=== PATIENT | male | born 1940 | race Caucasian/White ===

== ENCOUNTER 2019-03-11 19:42 | Emergency (ER) | payer OTHER ==
[~2019-03-11] VITALS: Ht 182.9 cm; Wt 99.8 kg
[~2019-03-11 19:42] MED LIST: CIPR500 PO; Percocet 5-3251 EACH PO; TAMS.4ER PO; Zofran Odt4 MG SL
== END 2019-03-11 20:27 | disposition home or self-care (01) ==
LOC: ER 19:42
DX: R42 Dizziness and giddiness (principal); V49.9XXA Car occupant (driver) (passenger) injured in unspecified traffic accident, initial encounter
CPT/HCPCS: 99283

== ENCOUNTER → 2022-06-20 | Outpatient (CLI) | payer OTHER | LOC: LAB 15:45 → LAB SHORT 15:45 | DX: L08.9 Local infection of the skin and subcutaneous tissue, unspecified (principal) | CPT/HCPCS: 87070; 87077; 87147; 87186; 87205 ==

== ENCOUNTER 2023-09-18 07:49 | Inpatient (IN) | payer OTHER ==
[~2023-09-18] VITALS: Ht 182.9 cm; Wt 90.6 kg
[2023-09-18 08:27] LABS: BASOPHILS ABSOLUTE AUTO 0.05 K/mm3 (0.00-0.23); BASOPHILS PERCENT AUTO 1 % (0-2); EOSINOPHILS ABSOLUTE AUTO 0.01 K/mm3 (0.00-0.68); EOSINOPHILS PERCENT AUTO 0 % (0-6); Hematocrit 46.2 % (37.0-53.0); Hemoglobin 16.4 g/dL (13.5-17.5); IMMATURE GRAN ABSOLUTE AUTO 0.03 K/mm3 (0.00-0.10); IMMATURE GRAN PERCENT AUTO 0 % (0-1); LYMPHOCYTES ABSOLUTE AUTO 0.74 K/mm3 (0.84-5.20); LYMPHOCYTES PERCENT AUTO 7 % (21-46); MONOCYTES ABSOLUTE AUTO 0.92 K/mm3 (0.16-1.47); MONOCYTES PERCENT AUTO 9 % (4-13); Mean Corpuscular HGB 32.6 pg (26.0-34.0); Mean Corpuscular HGB Conc 35.5 g/dL (31.5-36.5); Mean Corpuscular Volume 92 fL (80-100); Mean Platelet Volume 10.2 fL (9.1-12.4); NEUTROPHILS PERCENT AUTO 83 % (41-73); Platelet Count 196 K/mm3 (150-400); RDW Coefficient Variation 12.4 % (11.7-14.2); RDW Standard Deviation 41.3 fL (35.1-46.3); Red Blood Cell Count 5.03 M/mm3 (4.30-5.90); White Blood Cell Count 10.25 K/mm3 (4.00-11.30)
[2023-09-18 08:36] LABS: Albumin, Blood 3.4 g/dL (3.4-5.0); Albumin/Globulin Ratio 0.7 (0.8-1.8); Bilirubin, Total 1.3 mg/dL (0.1-1.0); Bun/Creatinine Ratio 15.1 (12.0-20.0); Creatinine, Blood 1.06 mg/dL (0.60-1.20); Globulin, Blood 4.7 g/dL (2.2-4.0); Magnesium, Blood 2.1 mg/dL (1.6-2.4); Potassium, Blood 4.1 mmol/L (3.5-5.5); Total Protein, Blood 8.1 g/dL (6.4-8.2)
[2023-09-18 09:44] LABS: Influenza A, PCR NEGATIVE (NEGATIVE); Influenza B, PCR NEGATIVE (NEGATIVE); Resp Syncytial Virus, PCR NEGATIVE (NEGATIVE)
[2023-09-18 09:55] LABS: SARS-Cov-2 (COVID-19) PCR, MMC POSITIVE (NEGATIVE)
[2023-09-18 11:29] LABS: Source, Urine Clean Catch
[2023-09-18 11:37] LABS: Appearance, Urine Clear (Clear); Bilirubin, Urine Neg (Neg); Blood, Urine 3+ (Neg); Color, Urine Yellow (P-Yellow); Glucose Qualitative, Urine Neg (Neg); Ketones, Urine 2+ (Neg); Leukocyte Esterase, Urine 2+ (Neg); Nitrite, Urine Neg (Neg); Protein, Urine 2+ (Neg); Urobilinogen, Urine NORM (Normal)
[2023-09-18 11:48] LABS: Bacteria Many /hpf; Squamous Epithelial Cells Few /hpf (Few)
[2023-09-18 14:04] VITALS: BP 120/83
[2023-09-18 16:17] LABS: Anti-Xa UFH, PHA Monitoring <0.10 IU/mL; International Normalized Ratio 1.09; Prothrombin Time Results 11.4 Sec (9.7-11.5)
[2023-09-18 16:54] VITALS: BP 132/78
--- NOTE | 2023-09-18 18:50 | NUR ---
Shift Summary Report received form ER; pt to room via ivette, 1 person assist transfer to bed; pt unsteady on feet and leans backward while trying to stand. Pt oriented to call light and room; educated on fall risk and needing assistance to get up. Bed in low, bed alarm on, call light within reach. Pt alert, oriented x3; forgetful and impulsive at times. Tele afib 100-110's, bp stable; on dilt gtt at 5mg/hr. Spo2 >90% on ra, breathing even and unlabored. Abd soft, nontender +bt. Edema noted to lle. Venous duplex +; notified Dr Gu; new order for IR consult called to office. Heparin gtt started. No other acute changes noted. Will continue to monitor.
--- NOTE | 2023-09-18 18:56 | NUR ---
Patient and daughter have requested no COVID vaccine or remdesivir be administered to patient.
[2023-09-18 20:01] VITALS: BP 115/78
[2023-09-18 23:20] VITALS: BP 134/85
[2023-09-19] VITALS (7 sets, daily range): BP systolic 115–148; BP diastolic 72–102
[2023-09-19 04:42] LABS: BASOPHILS ABSOLUTE AUTO 0.06 K/mm3 (0.00-0.23); BASOPHILS PERCENT AUTO 1 % (0-2); EOSINOPHILS ABSOLUTE AUTO 0.02 K/mm3 (0.00-0.68); EOSINOPHILS PERCENT AUTO 0 % (0-6); Hematocrit 44.2 % (37.0-53.0); IMMATURE GRAN ABSOLUTE AUTO 0.03 K/mm3 (0.00-0.10); IMMATURE GRAN PERCENT AUTO 0 % (0-1); LYMPHOCYTES ABSOLUTE AUTO 1.28 K/mm3 (0.84-5.20); LYMPHOCYTES PERCENT AUTO 16 % (21-46); MONOCYTES ABSOLUTE AUTO 1.03 K/mm3 (0.16-1.47); MONOCYTES PERCENT AUTO 13 % (4-13); Mean Corpuscular HGB 32.1 pg (26.0-34.0); Mean Corpuscular HGB Conc 33.9 g/dL (31.5-36.5); Mean Corpuscular Volume 94 fL (80-100); Mean Platelet Volume 9.9 fL (9.1-12.4); NEUTROPHILS ABSOLUTE AUTO 5.65 K/mm3 (1.96-9.15); NEUTROPHILS PERCENT AUTO 70 % (41-73); Platelet Count 177 K/mm3 (150-400); RDW Coefficient Variation 12.4 % (11.7-14.2); RDW Standard Deviation 42.7 fL (35.1-46.3); Red Blood Cell Count 4.68 M/mm3 (4.30-5.90); White Blood Cell Count 8.07 K/mm3 (4.00-11.30)
[2023-09-19 05:09] LABS: Bun/Creatinine Ratio 16.2 (12.0-20.0); Calcium, Blood 8.3 mg/dL (8.5-10.1); Creatinine, Blood 1.05 mg/dL (0.60-1.20); Magnesium, Blood 1.9 mg/dL (1.6-2.4); Potassium, Blood 3.8 mmol/L (3.5-5.5)
--- NOTE | 2023-09-19 06:00 | NUR ---
SHIFT SUMMARY PATIENT ALERT, ORIENTED x2-3. PATIENT DEFENSIVE WHEN SPEAKING WITH STAFF, STATING "I DON'T EVEN NEED TO BE HERE", "I NEED TO GET OUT OF HERE". PATIENT REORIENTED TO THE REASON HE IS IN THE HOSPITAL. BP STABLE. TELE READING AFIB/AFLUTTER 100s. CARDIZEM GTT ON STANDBY SINCE AROUND 0430. PATIENT PLACED ON 2L NC DURING THE NIGHT D/T DESATTING TO MID 80s WHEN ASLEEP, SPO2 >90% OTHERWISE. PATIENT ATTEMPTING TO USE URINAL BUT IS ALSO HAVING INCONTINENT VOIDS. ATTENDS IN PLACE. TURNING SELF IN BED. NO OTHER CHANGES DURING THE NIGHT, WILL REPORT TO DAY SHIFT RN.
--- NOTE | 2023-09-19 17:50 | NUR ---
Shift Summary Pt alert, oriented 2-3; forgetful at times. Pt up with 1 person assist and walker/gb. Pt denies pain, chest pain/pressure, sob, nausea, dizziness and numb/tingling. Tele afib 100's, bp stable. Spo2 >90% on ra, breathing even and unlabored. Abd soft, nontender +bt noted. Edema noted to lle. Pt to labor standards director this evening, left popliteal access with flowstasis. Otehr vss. No other acute changes noted. Will continue to monitor.
[2023-09-20 04:14] VITALS: BP 125/79
--- NOTE | 2023-09-20 04:25 | NUR ---
SHIFT SUMMARY. PT HAS BEEN DOING WELL THROUGHOUT THIS SHIFT, NO ACUTE CHANGES. PT HAS BEEN AOX2-3 THROUGHOUT SHIFT, REQUIRING SOME REORIENTATION PERIODICALLY. SOMEWHAT IMPULSIVE BUT IS EASILY REDIRECTABLE. NO PAIN REPORTED THIS SHIFT. DOES NOT USE CALL LIGHT CONSISTENTLY BUT IS ABLE TO MAKE NEEDS KNOWN WHEN PROMPTED. HAS BEEN SATURATING WELL ON ROOM AIR THROUGHOUT SHIFT THUS FAR. LEFT POPLITEAL SITE APPEARS UNCHANGED FROM SHIFT CHANGE. HAS BEEN ABLE TO SLEEP THROUGHOUT MOST OF SHIFT THUS FAR. HEPARIN DRIP RUNNING THROUGHOUT SHIFT, TITRATED DOWN ONCE PER ORDER OF PHARMACY. ALL I+Os CHARTED APPROPRIATELY. VITALS HAVE BEEN STABLE THROUGHOUT SHIFT. BED ALARM ACTIVE THROUGHOUT SHIFT. COVID PRECAUTIONS REMAIN IN PLACE. BED LOCKED IN LOWEST POSITION. CALL LIGHT LEFT WITHIN REACH. CONTINUING TO MONITOR.
[2023-09-20 06:14] LABS: BASOPHILS ABSOLUTE AUTO 0.06 K/mm3 (0.00-0.23); BASOPHILS PERCENT AUTO 1 % (0-2); EOSINOPHILS ABSOLUTE AUTO 0.07 K/mm3 (0.00-0.68); EOSINOPHILS PERCENT AUTO 1 % (0-6); Hematocrit 43.1 % (37.0-53.0); Hemoglobin 15.2 g/dL (13.5-17.5); IMMATURE GRAN ABSOLUTE AUTO 0.02 K/mm3 (0.00-0.10); IMMATURE GRAN PERCENT AUTO 0 % (0-1); LYMPHOCYTES ABSOLUTE AUTO 1.44 K/mm3 (0.84-5.20); LYMPHOCYTES PERCENT AUTO 21 % (21-46); MONOCYTES ABSOLUTE AUTO 0.79 K/mm3 (0.16-1.47); MONOCYTES PERCENT AUTO 11 % (4-13); Mean Corpuscular HGB 32.7 pg (26.0-34.0); Mean Corpuscular HGB Conc 35.3 g/dL (31.5-36.5); Mean Corpuscular Volume 93 fL (80-100); Mean Platelet Volume 10.3 fL (9.1-12.4); NEUTROPHILS ABSOLUTE AUTO 4.63 K/mm3 (1.96-9.15); NEUTROPHILS PERCENT AUTO 66 % (41-73); Platelet Count 173 K/mm3 (150-400); RDW Coefficient Variation 12.5 % (11.7-14.2); RDW Standard Deviation 42.6 fL (35.1-46.3); Red Blood Cell Count 4.65 M/mm3 (4.30-5.90); White Blood Cell Count 7.01 K/mm3 (4.00-11.30)
[2023-09-20 06:32] LABS: Bun/Creatinine Ratio 17.1 (12.0-20.0); Calcium, Blood 8.5 mg/dL (8.5-10.1); Creatinine, Blood 1.05 mg/dL (0.60-1.20); Potassium, Blood 4.2 mmol/L (3.5-5.5)
[2023-09-20 08:38] VITALS: BP 143/82
[2023-09-20 11:39] VITALS: BP 108/71
[2023-09-20 16:18] VITALS: BP 114/78
--- NOTE | 2023-09-20 18:33 | NUR ---
Shift Summary Pt alert, oriented x2-3, pt forgetful at times. Pt up with 1 person assist to bathroom. Pt denies pain, chest pain/pressure, sob, nausea, dizziness and numb/tingling. Tele afib 80-90's and bp stable. Spo2 >90% on ra while awake, 2l o2 via nc while sleeping. Abd, soft nontender, +bt. Pt transitioned from heparin to xarelto this evening. LLE site c/d/i, flow statsis removed by feed mill lab technician rn this am. Other vss. No other acute changes noted. Will continue to monitor.
[2023-09-20 19:31] VITALS: BP 131/82
[2023-09-21 04:26] VITALS: BP 143/86
[2023-09-21 05:28] LABS: BASOPHILS ABSOLUTE AUTO 0.04 K/mm3 (0.00-0.23); BASOPHILS PERCENT AUTO 1 % (0-2); EOSINOPHILS ABSOLUTE AUTO 0.15 K/mm3 (0.00-0.68); EOSINOPHILS PERCENT AUTO 3 % (0-6); Hematocrit 45.3 % (37.0-53.0); Hemoglobin 15.7 g/dL (13.5-17.5); IMMATURE GRAN ABSOLUTE AUTO 0.02 K/mm3 (0.00-0.10); IMMATURE GRAN PERCENT AUTO 0 % (0-1); LYMPHOCYTES ABSOLUTE AUTO 1.62 K/mm3 (0.84-5.20); LYMPHOCYTES PERCENT AUTO 27 % (21-46); MONOCYTES ABSOLUTE AUTO 0.58 K/mm3 (0.16-1.47); MONOCYTES PERCENT AUTO 10 % (4-13); Mean Corpuscular HGB Conc 34.7 g/dL (31.5-36.5); Mean Corpuscular Volume 92 fL (80-100); Mean Platelet Volume 10.6 fL (9.1-12.4); NEUTROPHILS ABSOLUTE AUTO 3.65 K/mm3 (1.96-9.15); NEUTROPHILS PERCENT AUTO 60 % (41-73); Platelet Count 188 K/mm3 (150-400); RDW Coefficient Variation 12.4 % (11.7-14.2); RDW Standard Deviation 42.5 fL (35.1-46.3); Red Blood Cell Count 4.91 M/mm3 (4.30-5.90); White Blood Cell Count 6.06 K/mm3 (4.00-11.30)
[2023-09-21 05:51] LABS: Albumin, Blood 2.9 g/dL (3.4-5.0); Albumin/Globulin Ratio 0.6 (0.8-1.8); Bilirubin, Total 0.7 mg/dL (0.1-1.0); Bun/Creatinine Ratio 23.9 (12.0-20.0); Calcium, Blood 8.5 mg/dL (8.5-10.1); Creatinine, Blood 0.88 mg/dL (0.60-1.20); Globulin, Blood 4.6 g/dL (2.2-4.0); Potassium, Blood 3.8 mmol/L (3.5-5.5); Total Protein, Blood 7.5 g/dL (6.4-8.2)
--- NOTE | 2023-09-21 06:15 | NUR ---
SHIFT SUMMARY. PT HAS BEEN DOING WELL OVERALL THROUGHOUT SHIFT, NO ACUTE CHANGES. PT REMAINS AOX2-3, PLEASANT, MOSTLY COOPERATIVE WITH CARE. CONTINUES TO BE SOMEWHAT CONFUSED/FORGETFUL. IMPULSIVE, BED ALARM HAS BEEN ACTIVE THROUGHOUT SHIFT. PT CONTINENT, SPORADICALLY USES CALL LIGHT APPROPRIATELY BUT MORE OFTEN ATTEMPTS OOB INDEPENDENTLY TRIGGERING BED ALARM AND STAFF INTERVENTION. TELE ON THROUGHOUT SHIFT, NO EVENTS THUS FAR. VITALS HAVE BEEN STABLE, MAINTAINING SATURATIONS >92% ON 2 L O2 VIA NC THROUGHOUT SHIFT. NO REPORTED PAIN THROUGHOUT SHIFT. PT EASILY REDIRECTABLE AND FOLLOWS DIRECTIONS APPROPRIATELY. CALL LIGHT LEFT WITHIN REACH WHICH PT ONLY USES SPORADICALLY. L POPLITEAL SURGICAL SITE REMAINS UNCHANGED THROUGHOUT SHIFT. BED LOCKED IN LOWEST POSITION. CALL LIGHT LEFT WITHINR EACH. CONTINUING TO MONITOR.
[2023-09-21 07:21] VITALS: BP 115/97
[2023-09-21] MEDS ORDERED: XARELTO15 MG PO (11:26)
[2023-09-21] MEDS ORDERED: METO25 PO (11:26)
[2023-09-21] MEDS ORDERED: XARELTO20 MG PO (11:27)
[2023-09-21 12:38] VITALS: BP 105/61
--- NOTE | 2023-09-21 12:40 | NUR ---
PT DISCHARGED AT 1240. PT HAD AN UNEVENTFUL MORNING. VS STABLE. THE PT'S AND DAUGHTER WERE BOTH AT THE BEDSIDE WHEN SPRING, THE BILINGUAL NANNY, WENT OVER DISCHARGE WITH THE PT. ALL QUESTIONS WERE ANSWERED. THE POWERGLIDE WAS D/C'D BY THE BILINGUAL NANNY WITHOUT IN COMPLICATIONS.
== END 2023-09-21 12:35 | disposition home or self-care (01) | DRG 270 ==
LOC: ER 07:49 → PCU 07:50
PROVIDERS: Emergency Medicine; ADMIT Family Medicine
PROC: 04CL3ZZ Extirpation of Matter from Left Femoral Artery, Percutaneous Approach (ICD-10-PCS; principal; 2023-09-19)
PROC: 04CN3ZZ Extirpation of Matter from Left Popliteal Artery, Percutaneous Approach (ICD-10-PCS; 2023-09-19)
PROC: 04CD3ZZ Extirpation of Matter from Left Common Iliac Artery, Percutaneous Approach (ICD-10-PCS; 2023-09-19)
DX: I82.412 Acute embolism and thrombosis of left femoral vein (principal); U07.1 COVID-19; I48.92 Unspecified atrial flutter; I82.432 Acute embolism and thrombosis of left popliteal vein; I82.442 Acute embolism and thrombosis of left tibial vein; I82.452 Acute embolism and thrombosis of left peroneal vein; F03.90 Unspecified dementia, unspecified severity, without behavioral disturbance, psychotic disturbance, mood disturbance, and anxiety; I10 Essential (primary) hypertension; R73.9 Hyperglycemia, unspecified; Z87.442 Personal history of urinary calculi; Z79.899 Other long term (current) drug therapy; Z98.890 Other specified postprocedural states
CPT/HCPCS: 0241U; 36415; 71046; 76937; 80048; 80053; 81001; 83735; 83880; 84443; 84484; 85025; 85520; 85610; 85730; 87086; 93005; 93010; 93306; 93971; 94760; 96365; 96366; 96374; 96375; 97116; 97129; 97162; 97165; 99152; 99153; 99285-25; A9270; C1757; C1769; C1887; C1894; G0378; J1644; J2250; J3010; J7030; Q9967

== ENCOUNTER 2023-10-07 09:50 | Emergency (ER) | payer OTHER ==
[~2023-10-07] VITALS: Ht 182.9 cm; Wt 83.9 kg
[~2023-10-07 09:50] MED LIST changes: +METO25 PO; +XARELTO15 MG PO; +XARELTO20 MG PO
[2023-10-07 10:45] LABS: BASOPHILS ABSOLUTE AUTO 0.07 K/mm3 (0.00-0.23); BASOPHILS PERCENT AUTO 1 % (0-2); EOSINOPHILS ABSOLUTE AUTO 0.12 K/mm3 (0.00-0.68); EOSINOPHILS PERCENT AUTO 1 % (0-6); Hematocrit 41.5 % (37.0-53.0); Hemoglobin 14.6 g/dL (13.5-17.5); IMMATURE GRAN ABSOLUTE AUTO 0.03 K/mm3 (0.00-0.10); IMMATURE GRAN PERCENT AUTO 0 % (0-1); LYMPHOCYTES ABSOLUTE AUTO 1.22 K/mm3 (0.84-5.20); LYMPHOCYTES PERCENT AUTO 15 % (21-46); MONOCYTES ABSOLUTE AUTO 0.54 K/mm3 (0.16-1.47); MONOCYTES PERCENT AUTO 7 % (4-13); Mean Corpuscular HGB 32.7 pg (26.0-34.0); Mean Corpuscular HGB Conc 35.2 g/dL (31.5-36.5); Mean Corpuscular Volume 93 fL (80-100); Mean Platelet Volume 10.5 fL (9.1-12.4); NEUTROPHILS ABSOLUTE AUTO 6.38 K/mm3 (1.96-9.15); NEUTROPHILS PERCENT AUTO 76 % (41-73); Platelet Count 209 K/mm3 (150-400); RDW Coefficient Variation 12.3 % (11.7-14.2); RDW Standard Deviation 42.2 fL (35.1-46.3); Red Blood Cell Count 4.46 M/mm3 (4.30-5.90); White Blood Cell Count 8.36 K/mm3 (4.00-11.30)
[2023-10-07 11:19] LABS: Albumin, Blood 3.3 g/dL (3.4-5.0); Albumin/Globulin Ratio 0.8 (0.8-1.8); Bilirubin, Total 1.1 mg/dL (0.1-1.0); Bun/Creatinine Ratio 15.7 (12.0-20.0); Creatinine, Blood 1.02 mg/dL (0.60-1.20); Globulin, Blood 4.2 g/dL (2.2-4.0); Potassium, Blood 4.2 mmol/L (3.5-5.5); Total Protein, Blood 7.5 g/dL (6.4-8.2)
[2023-10-07 13:15] VITALS: BP 123/74
== END 2023-10-07 13:30 | disposition home or self-care (01) ==
LOC: ER 09:50
PROVIDERS: Student in an Organized Health Care Education/Training Program
DX: I82.412 Acute embolism and thrombosis of left femoral vein (principal); I82.432 Acute embolism and thrombosis of left popliteal vein; I82.442 Acute embolism and thrombosis of left tibial vein; I82.452 Acute embolism and thrombosis of left peroneal vein; Z79.01 Long term (current) use of anticoagulants; Z79.899 Other long term (current) drug therapy
CPT/HCPCS: 80053; 84484; 85025; 93005; 93010; 93971; 99284-25

== ENCOUNTER → 2023-10-09 | Outpatient (CLI) | payer OTHER ==
[~2023-10-09] MED LIST changes: +AMOX-CLAV 875-1 EAC5 PO; +Cipro500 MG PO; +DOXY100 PO; +ELIQUIS5 M4 PO; +METOPROLOL TART25 MG PO; +XARELTO15 M1 PO
== END ==
LOC: LAB SHORT 17:29 → LAB 17:29
DX: L08.9 Local infection of the skin and subcutaneous tissue, unspecified (principal)
CPT/HCPCS: 87070; 87077; 87186; 87205